=== PATIENT | male | born 1990 | race Caucasian/White ===

== ENCOUNTER 2022-07-11 19:21 | Emergency (ER) | payer SELFPAY ==
[~2022-07-11] VITALS: Ht 167.6 cm; Wt 70.3 kg
[2022-07-11 19:25] VITALS: BP 116/61
--- NOTE | 2022-07-11 19:50 | NUR ---
SPOKE WITH AUDIOLOGY ASSISTANT 50 AT [facility]. PT TO BE ADVISED THAT FOLLOWING HIS DISCHARGE HE MAY COME TO THE [facility] AND FILE A REPORT. WILL ADVISE PT
--- NOTE | 2022-07-11 22:35 | NUR ---
CALLED PT IN LOBBY WITH NO ANSWER. INFORMED BY ADMITTING THAT PT LEFT. LWBS
== END 2022-07-11 22:30 | disposition left against medical advice (07) ==
LOC: MED 19:21
DX: M95.0 Acquired deformity of nose (principal); Z53.21 Procedure and treatment not carried out due to patient leaving prior to being seen by health care provider
CPT/HCPCS: 99281